=== PATIENT | female | born 2000 | race Caucasian/White ===

== ENCOUNTER 2025-02-06 23:48 | Emergency (ER) | payer OTHER ==
[~2025-02-06] VITALS: Ht 154.9 cm; Wt 65.9 kg
[2025-02-07 00:52] LABS: HCG, SERUM QUALITATIVE NEGATIVE (NEGATIVE)
[2025-02-07 01:39] VITALS: BP 115/62; TEMP 98.6; O2SAT 98
== END 2025-02-07 01:43 | disposition home or self-care (01) ==
LOC: M ED 23:48
DX: S93.401A Sprain of unspecified ligament of right ankle, initial encounter (principal); Y92.019 Unspecified place in single-family (private) house as the place of occurrence of the external cause; Y93.9 Activity, unspecified; Y99.9 Unspecified external cause status; W01.0XXA Fall on same level from slipping, tripping and stumbling without subsequent striking against object, initial encounter